=== PATIENT | male | born 1960 | race Caucasian/White ===

== ENCOUNTER 2024-08-28 09:49 | Emergency (ER) | payer MEDICARE, OTHER ==
[~2024-08-28] VITALS: Ht 165.1 cm; Wt 79.8 kg
[2024-08-28] MEDS ORDERED: OXYCODONE/APAP 5/325 TAB PO ONE (10:30)
--- OUTSIDE RECORDS SUMMARY | 2024-08-28 11:47 | XMS ---
PreManage Notification: AGUEDA DEL VALLE Security Development Technician Events No recent Security Events currently on file CRITERIA MET - 6 ED Visits in 6 Months - [facility] - 2 Visits in 30 Days - [facility] - 3 Facilities in 90 Days CARE PROVIDERS Adrian Patel Gas Plant Worker/Instructional Support Assistant 06/20/2024-Current PHONE: [phone] [facility]/Center: [facility] ([facility]) PHONE: [phone] JYOTSNA VICK Nurse Practitioner: Family Current PHONE: [phone] EMILIANO MILES Physician Plant Control Operator Jason CASTILLO PHONE: [phone] FELECIA DOMINGUEZ Nurse Practitioner: Adult Health Current [place] PHONE: [phone] FREDY KRUEGER Physician Plant Control Operator Current PHONE: Unknown Maru has no Care Guidelines for this patient. Cristi VISIT COUNT (12 [address] [facility] 1 YANI[facility] Huff 1 [facility] Mynor Torres [address] [facility] [place] TOTAL 6 NOTE: Visits indicate total known visits. 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, level unspecified, subsequent encounter - Other controller coal or ore (current) drug therapy - Weakness - Fall - Post op; Wound Check 07/01/2024 15[facility] DIAGNOSES: - Acute on chronic combined systolic (congestive) and diastolic (congestive) heart failure - Patient's other noncompliance with medication regimen for other reason - Shortness of breath - Unspecified atherosclerosis of [place] arteries of extremities, unspecified extremity - shortness of breath 06/22/2024 20[facility] [place] [facility] DIAGNOSES: - Kelly's palsy - Longstanding persistent atrial fibrillation - Other disorder of circulatory system - Pain in leg, unspecified - Unspecified atherosclerosis - Foot injury - Foot Pain 04/16/2024 09:41 [facility] DIAGNOSES: - Acute systolic (congestive) heart failure - Hypoxemia - Unspecified atrial fibrillation - difficulty breathing - Shortness of Breath 10/10/2023 15:18 [facility] [place] TYPE: Emergency DIAGNOSES: 1. Paroxysmal atrial fibrillation 2. Acquired absence of right leg above knee 2. Anemia, unspecified 2. Cervicalgia 2. Do not resuscitate 2. Heart failure, unspecified 2. Hypoxemia 2. Other controller coal or ore (current) drug therapy 2. Other specified abnormal findings of blood chemistry 2. Other stimulant abuse, uncomplicated 2. Pain in left finger(s) 2. Pain in right finger(s) 2. Pain in right wrist 2. Repeated falls 2. Tobacco use 2. Traumatic subdural hemorrhage without loss of consciousness, initial encounter 2. Unspecified fall, initial encounter 2. 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, level unspecified, subsequent encounter - Other controller coal or ore (current) drug therapy - Weakness 08/07[facility]2024 [facility] DIAGNOSES: - Acquired absence of left leg above knee - Acquired absence of right leg above knee - Acute on chronic combined systolic (congestive) and diastolic (congestive) heart failure - Acute systolic (congestive) heart failure - Chronic systolic (congestive) heart failure - Heart failure, unspecified - Pain, unspecified - Peripheral vascular disease, unspecified - Unspecified atrial fibrillation 07/01/2024 [facility] DIAGNOSES: - Acute on chronic combined systolic (congestive) and diastolic (congestive) heart failure - Patient's other noncompliance with medication regimen for other reason - Shortness of breath - Unspecified atherosclerosis of [place] arteries of extremities, unspecified extremity 06/22/2024 20:[facility] [place] [facility] DIAGNOSES: - Acquired absence of right leg above knee - Acute systolic (congestive) heart failure - Kelly's palsy - Chronic systolic (congestive) heart failure - Heart failure, unspecified - Longstanding persistent atrial fibrillation - Other disorder of circulatory system - Pain in leg, unspecified - Permanent atrial fibrillation - Unspecified atherosclerosis - Unspecified atherosclerosis of [place] arteries of extremities, unspecified extremity 04/16/2024 09[facility] [place] [facility]: Internal Medicine DIAGNOSES: - Acute respiratory failure with hypoxia - Acute systolic (congestive) heart failure - Heart failure, unspecified - Hypoxemia - Unspecified atrial fibrillation 03/16/2024 18[facility] [place] [facility]: [facility] DIAGNOSES: - Acquired absence of right leg above knee - Acute respiratory failure with hypoxia - Heart failure, unspecified - Other fluid overload 01/04/2024 11:31 [facility] [place] [facility] DIAGNOSES: - Acute respiratory failure with hypoxia - Heart failure, unspecified - Other psychoactive substance abuse, uncomplicated - Patient's other noncompliance with medication regimen for other reason - Unspecified atrial fibrillation [facility] COMPLAINT: - Afib w/Rvr DIAGNOSES: - Unspecified atrial fibrillation - Unspecified atrial fibrillation [email or web address]
[2024-08-28 11:51] LABS: BASOPHILS 1.7 % (0-2); EOSINOPHILS 0.9 % (0-6); HEMATOCRIT 27.5 % (35.0-50.0); LYMPHOCYTES 10.4 % (24-44); MCH 25.1 (27-36); MCHC 32.6 g/dl (30-36); MONOCYTES 12.7 % (0-12); NEUTROPHILS 74.3 % (39-80); PLATELET COUNT 306 K/uL (140-440); RBC 3.58 M/ul (4.3-5.7); RDW 21.6 (10.5-15.0)
[2024-08-28 12:09] LABS: ALBUMIN 2.4 g/dL (3.4-5.0); ALBUMIN/GLOBULIN RATIO 0.69 (1.1-2.4); ANION GAP 9.9 (7-21); BILIRUBIN, TOTAL 2.5 ng/dL (0.2-1.0); BUN/CREATININE RATIO 23.63 (6.0-28.6); CALCIUM 8.6 mg/dL (8.5-10.1); CREATININE, SERUM 1.1 mg/dL (0.70-1.30); POTASSIUM 4.9 mmol/L (3.5-5.1); PROTEIN, TOTAL 5.9 g/dL (6.4-8.2)
[2024-08-28] MEDS ORDERED: FUROSEMIDE 40 MG TAB PO ONE (12:45)
[2024-08-28 14:27] VITALS: BP 118/95
== END 2024-08-28 14:28 | disposition home or self-care (01) ==
LOC: ED 09:49
PROVIDERS: Emergency Medicine
DX: N50.89 Other specified disorders of the male genital organs (principal); I11.0 Hypertensive heart disease with heart failure; I50.43 Acute on chronic combined systolic (congestive) and diastolic (congestive) heart failure; Z88.5 Allergy status to narcotic agent; Z88.2 Allergy status to sulfonamides; Z88.1 Allergy status to other antibiotic agents; Z91.041 Radiographic dye allergy status
CPT/HCPCS: 36415; 80053; 83880; 85025; 99284

== ENCOUNTER 2024-09-05 00:08 | Emergency (ER) | payer MEDICARE, OTHER ==
[~2024-09-05] VITALS: Ht 165.1 cm; Wt 79.8 kg
--- OUTSIDE RECORDS SUMMARY | 2024-09-05 00:13 | XMS ---
PreManage Notification: AGUEDA DEL VALLE Security Batch Plant Operator Events No recent Security Events currently on file CRITERIA MET - 6 ED Visits in 6 Months - [facility] - 2 Visits in 30 Days - [facility] - 3 Facilities in 90 Days CARE PROVIDERS Adrian Patel Vision Care Associate/Gas Compressor Turbine Operator 06/20/2024-Current PHONE: [phone] [facility]/Center: [facility] ([facility]) PHONE: [phone] JYOTSNA VICK Nurse Practitioner: Family Current PHONE: [phone] EMILIANO MILES Physician Cook Cashier Food Prep Jason CASTILLO PHONE: [phone] FELECIA DOMINGUEZ Nurse Practitioner: Adult Health Current [place] PHONE: [phone] FREDY KRUEGER Physician Cook Cashier Food Prep Current PHONE: Unknown Maru has no Care Guidelines for this patient. Cristi VISIT COUNT (12 MO[address] 3 [facility] 2 YANI[facility] Mynor Torres 1 [facility] [place] TOTAL 7 NOTE: Visits indicate total known visits. ED/UCC VISIT TRACKING (12 MO.) 09/05/2024 00:08 [facility] [place] TYPE: Emergency COMPLAINT: - DIFFICULTY BREATHING 08/28/2024 09:50 [facility] [place] TYPE: Emergency COMPLAINT: - ABDOMINAL PAIN DIAGNOSES: - Acute on chronic combined systolic (congestive) and diastolic (congestive) heart failure - Allergy status to narcotic agent - Allergy status to other antibiotic agents - Allergy status to sulfonamides - Hypertensive heart disease with heart failure - Other specified disorders of the male genital organs - Radiographic dye allergy status 08/22/2024 14:28 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, level unspecified, subsequent encounter - Other half-way (current) drug therapy - Weakness - Fall - Post op; Wound Check [facility]24 [facility] [place] [facility] DIAGNOSES: - Acute on chronic combined systolic (congestive) and diastolic (congestive) heart failure - Patient's other noncompliance with medication regimen for other reason - Shortness of breath - Unspecified atherosclerosis of [place] arteries of extremities, unspecified extremity - shortness of breath 06/22/2024 20:[facility] [place] [facility] DIAGNOSES: - Kelly's palsy - Longstanding persistent atrial fibrillation - Other disorder of circulatory system - Pain in leg, unspecified - Unspecified atherosclerosis - Foot injury - Foot Pain 04/16/2024 09:41 [facility] DIAGNOSES: - Acute systolic (congestive) heart failure - Hypoxemia - Unspecified atrial fibrillation - difficulty breathing - Shortness of Breath 10/10/2023 15:18 [facility] [place] TYPE: Emergency DIAGNOSES: 1. Paroxysmal atrial fibrillation 2. Acquired absence of right leg above knee 2. Anemia, unspecified 2. Cervicalgia 2. Do not resuscitate 2. Heart failure, unspecified 2. Hypoxemia 2. Other truck terminal manager (current) drug therapy 2. Other specified abnormal [...] INPATIENT VISIT TRACKING (12 MO.) 08/22/2024 14:28 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, level unspecified, subsequent encounter - Other half-way (current) drug therapy - Weakness 08/07/2024 16:37 [facility] [place] TYPE: Intermediate Care DIAGNOSES: - Acquired absence of left leg above knee - Acquired absence of right leg above knee - Acute on chronic combined systolic (congestive) and diastolic (congestive) heart failure - Acute systolic (congestive) heart failure - Chronic systolic (congestive) heart failure - Heart failure, unspecified - Pain, unspecified - Peripheral vascular disease, unspecified - Unspecified atrial fibrillation 07/01/2024 15:[facility] DIAGNOSES: - Acute on chronic combined systolic (congestive) and diastolic (congestive) heart failure - Patient's other noncompliance with medication regimen for other reason - Shortness of breath - Unspecified atherosclerosis of [place] arteries of extremities, unspecified extremity 06/22/2024 20:55 [facility] [place] TYPE: Progressive Care DIAGNOSES: - Acquired absence of right leg above knee - Acute systolic (congestive) heart failure - Kelly's palsy - Chronic systolic (congestive) heart failure - Heart failure, unspecified - Longstanding persistent atrial fibrillation - Other disorder of circulatory system - Pain in leg, unspecified - Permanent atrial fibrillation - Unspecified atherosclerosis - Unspecified atherosclerosis of [place] arteries of extremities, unspecified extremity 04/16/2024 09:41 [facility] DIAGNOSES: - Acute respiratory failure with hypoxia - Acute respiratory failure with hypoxia - Acute systolic (congestive) heart failure - Acute systolic (congestive) heart failure - Heart failure, unspecified - Heart failure, unspecified - Hypoxemia - Unspecified atrial fibrillation - Unspecified atrial fibrillation 03/16/2024 18:16 [facility] [place] TYPE: Medical Surgical DIAGNOSES: - Acquired absence of right leg above knee - Acquired absence of right leg above knee - Acute respiratory failure with hypoxia - Acute respiratory failure with hypoxia - Heart failure, unspecified - Heart failure, unspecified - Other fluid overload 01/04/2024 11:31 [facility] [place] [facility] Medical [facility] DIAGNOSES: - Acute respiratory failure with hypoxia - Heart failure, unspecified - Other psychoactive substance abuse, uncomplicated - Patient's other noncompliance with medication regimen for other reason - Unspecified atrial fibrillation 10/11/2023 00:35 [facility] TYPE: Cardiovacular ICU COMPLAINT: - Afib w/Rvr DIAGNOSES: - Unspecified atrial fibrillation - Unspecified atrial fibrillation [email or web address]
[2024-09-05] MEDS ORDERED: FUROSEMIDE 40 MG/4 ML VIAL IV ONE (00:15)
[2024-09-05] MEDS ORDERED: METOPROLOL TARTRATE 5 MG/5 ML VIAL IV ONE (00:45)
[2024-09-05 01:01] LABS: PH, VENOUS 7.415 (7.31-7.41)
[2024-09-05 01:07] LABS: EOSINOPHILS 1.5 % (0-6); HEMATOCRIT 31.9 % (35.0-50.0); HEMOGLOBIN 10.2 g/dL (12.0-18.0); LYMPHOCYTES 9.6 % (24-44); MCHC 31.9 g/dl (30-36); MCV 78.4 fl (81-99); MONOCYTES 11.1 % (0-12); NEUTROPHILS 76.8 % (39-80); PLATELET COUNT 302 K/uL (140-440); RBC 4.07 M/ul (4.3-5.7); RDW 23.3 (10.5-15.0)
[2024-09-05 01:26] LABS: ALBUMIN 2.6 g/dL (3.4-5.0); ALBUMIN/GLOBULIN RATIO 0.84 (1.1-2.4); ANION GAP 9.2 (7-21); BILIRUBIN, TOTAL 2.8 mg/dL (0.2-1.0); BUN/CREATININE RATIO 17.2 (6.0-28.6); CALCIUM 8.4 mg/dL (8.5-10.1); CREATININE, SERUM 0.93 mg/dL (0.70-1.30); POTASSIUM 3.2 mmol/L (3.5-5.1); PROTEIN, TOTAL 5.7 g/dL (6.4-8.2)
[2024-09-05] MEDS ORDERED: MAGNESIUM OXIDE 400 MG TABLET PO ONE (01:45)
[2024-09-05] MEDS ORDERED: POTASSIUM CHLORIDE 10 MEQ TABCR PO ONE (01:45)
[2024-09-05] MEDS ORDERED: CARVEDILOL6.25 MG PO (02:00)
[2024-09-05] MEDS ORDERED: LASIX40 MG PO (02:00)
[2024-09-05] MEDS ORDERED: POTASSIUM CHLO10 MEQ PO (02:00)
[2024-09-05] MEDS ORDERED: OXYCODONE/APAP 5/325 TAB PO ONE (02:00)
[2024-09-05 02:41] VITALS: BP 156/85
--- NOTE | 2024-09-05 11:36 | EKG ---
[facility] [address] [place] [place], [place] [address] Signed Atrial fibrillation with rapid ventricular response Cannot rule out Anterior infarct , age undetermined Abnormal ECG No previous ECGs available Confirmed by Med Nash DO ([id number]) on 09/05/2024 11:35:53 AM Electronically Signed By: MED NASH DO 09/05/24 1136 PATIENT NAME: AGUEDA DEL VALLE JR Electrocardiogram DATE OF : 58 PHYSICIAN: MED NASH DO REPORT #: [id number] REPORT IS CONFIDENTIAL AND NOT TO BE RELEASED WITHOUT AUTHORIZATION
== END 2024-09-05 02:57 | disposition home or self-care (01) ==
LOC: ED 00:08
PROVIDERS: Family Medicine
DX: I11.0 Hypertensive heart disease with heart failure (principal); I50.9 Heart failure, unspecified; Z88.5 Allergy status to narcotic agent; Z88.2 Allergy status to sulfonamides; Z88.1 Allergy status to other antibiotic agents; Z91.041 Radiographic dye allergy status
CPT/HCPCS: 36415; 71045; 80053; 82803; 83735; 83880; 84484; 85025; 85060; 85379; 93005; 93010; 96374; 96375; 99285-25; A9270; J1940